=== PATIENT | female | born 1965 | race Hispanic/Latino ===

== ENCOUNTER → 2020-02-23 | Outpatient (CLI) | payer MEDICAID | END | disposition home or self-care (01) | LOC: RAH 09:45 | PROVIDERS: ATTEND Family Medicine | DX: Z12.31 Encounter for screening mammogram for malignant neoplasm of breast (principal) | CPT/HCPCS: 77067 ==

== ENCOUNTER → 2021-02-21 | Outpatient (CLI) | payer MEDICAID | END | disposition home or self-care (01) | LOC: RAH 15:01 | PROVIDERS: ATTEND Family Medicine | DX: Z12.31 Encounter for screening mammogram for malignant neoplasm of breast (principal) | CPT/HCPCS: 77067 ==

== ENCOUNTER → 2021-03-14 | Outpatient (CLI) | payer MEDICAID | END | disposition home or self-care (01) | LOC: RAH 10:25 | PROVIDERS: ATTEND Family Medicine | DX: R92.8 Other abnormal and inconclusive findings on diagnostic imaging of breast (principal); Z92.89 Personal history of other medical treatment | CPT/HCPCS: 76641 ==

== ENCOUNTER → 2021-05-10 | Outpatient (CLI) | payer MEDICAID ==
[2021-05-10 09:43] LABS: PROTHROMBIN TIME 10.9 SEC (9.6-11.6)
[2021-05-10 09:44] LABS: PARTIAL THROMBOPLASTIN TIME 26.4 SEC (26.3-35.5)
== END | disposition home or self-care (01) ==
LOC: RAH 08:55
PROVIDERS: ATTEND Student in an Organized Health Care Education/Training Program
DX: N63.32 Unspecified lump in axillary tail of the left breast (principal); R59.9 Enlarged lymph nodes, unspecified; I10 Essential (primary) hypertension; E78.5 Hyperlipidemia, unspecified; E11.43 Type 2 diabetes mellitus with diabetic autonomic (poly)neuropathy; K31.84 Gastroparesis; Z98.891 History of uterine scar from previous surgery; Z90.710 Acquired absence of both cervix and uterus; Z79.01 Long term (current) use of anticoagulants; Z79.899 Other long term (current) drug therapy
CPT/HCPCS: 10005; 36415; 85610; 85730; 87070; 87076; A4215

== ENCOUNTER 2021-06-07 10:53 | Day surgery (SDC) | payer MEDICAID ==
[2021-06-01 10:57] LABS: BASOPHILS % (AUTO) 0.5 % (0.0-5.0); EOSINOPHILS % (AUTO) 0.3 % (0.0-8.0); HEMATOCRIT 40.5 % (36-48); LYMPHOCYTES % (AUTO) 24.1 % (21.0-51.0); MEAN CORPUSCULAR HEMOGLOBIN 28.8 pg (27.0-33.0); MEAN CORPUSCULAR HGB CONC 33.1 g/dL (32.0-36.0); MEAN CORPUSCULAR VOLUME 86.9 fL (79-99); MONOCYTES % (AUTO) 6.3 % (3.0-13.0); NEUTROPHILS % (AUTO) 68.2 % (40.0-77.0); PLATELET COUNT (AUTO) 275 K/uL (130-400); RED BLOOD CELL COUNT(AUTO) 4.66 MIL/uL (4.00-5.50); WHITE BLOOD COUNT (AUTO) 9.6 K/uL (4.8-10.8)
[2021-06-01 11:20] LABS: BILIRUBIN,TOTAL 0.7 mg/dL (0.2-1.0); CREATININE 0.7 mg/dL (0.5-1.5); POTASSIUM 4.5 mmol/L (3.5-5.1); TOTAL PROTEIN, SERUM 7.6 g/dL (6.0-8.3)
[2021-06-06 13:55] VITALS: BP 144/61
[2021-06-07] VITALS (15 sets, daily range): BP systolic 109–144; BP diastolic 54–72
[~2021-06-07] VITALS: Ht 160 cm; Wt 76.6 kg
[~2021-06-07 10:53] MED LIST: AEC81 PO; CEFAZOLIN SODIUM 1 GM VIAL IVP SCH; METF-444 PO
[2021-06-07] MEDS ORDERED: AMLO-257 PO (12:04)
[2021-06-07] MEDS ORDERED: MELO-106 PO (12:04)
[2021-06-07] MEDS ORDERED: EMPA25TA PO (12:04)
[2021-06-07] MEDS ORDERED: PIOG30TA70 PO (12:04)
[2021-06-07] MEDS ORDERED: TRAZ-185 PO (12:04)
[2021-06-07] MEDS ORDERED: GABA300C PO (12:04)
[2021-06-07] MEDS ORDERED: ATOR40TA71 PO (12:04)
[2021-06-07] MEDS ORDERED: BUPIVACAINE/PF 0.25% 30ML VIAL IJ ONE (12:38)
[2021-06-07] MEDS: 0.9%NACL 1000ML 1,000 ML IV ONE ×2 (12:40→13:01)
[2021-06-07] MEDS ORDERED: KETOROLAC 30MG VIAL (30MG/ML) ONE (13:19)
== END 2021-06-07 14:35 | disposition home or self-care (01) ==
LOC: DAH 10:53
PROVIDERS: ATTEND Student in an Organized Health Care Education/Training Program
DX: L72.0 Epidermal cyst (principal); Z20.822 Contact with and (suspected) exposure to COVID-19; I10 Essential (primary) hypertension; K21.9 Gastro-esophageal reflux disease without esophagitis; E11.43 Type 2 diabetes mellitus with diabetic autonomic (poly)neuropathy; K31.84 Gastroparesis; E78.5 Hyperlipidemia, unspecified; Z79.899 Other long term (current) drug therapy; Z79.82 Long term (current) use of aspirin; Z98.891 History of uterine scar from previous surgery; Z90.710 Acquired absence of both cervix and uterus; Z79.84 Long term (current) use of oral hypoglycemic drugs; Z88.6 Allergy status to analgesic agent
CPT/HCPCS: 11404; 36415; 80053; 82948 ×2; 85025; 87635; A4215; A4221; A4222; A4223; A4600; A4663; A4930 ×2; A6260; C9803; G0168; J0690; J1885; J7030 ×2; S0020; J3490

== ENCOUNTER → 2022-12-27 | Outpatient (CLI) | payer OTHER, MEDICARE ==
[~2022-12-27] MED LIST changes: +AMLO-257 PO; +ATOR40TA71 PO; -CEFAZOLIN SODIUM 1 GM VIAL IVP SCH; +EMPA25TA PO; +GABA300C PO; +MELO-106 PO; +PIOG30TA70 PO; +TRAZ-185 PO
== END | disposition home or self-care (01) ==
LOC: RAH 11:39
PROVIDERS: ATTEND Family Medicine
DX: Z12.31 Encounter for screening mammogram for malignant neoplasm of breast (principal)
CPT/HCPCS: 77067

== ENCOUNTER → 2023-10-09 | Outpatient (CLI) | payer OTHER, MEDICARE ==
[2023-10-09 16:31] LABS: CHOLESTEROL 115 mg/dL (<200); HDL CHOLESTEROL 51 mg/dL (35-85); LDL DIRECT 56 mg/dL (0-99); TRIGLYCERIDES 130 mg/dL (30-200)
== END | disposition home or self-care (01) ==
LOC: LAB 13:20
PROVIDERS: ATTEND Internal Medicine Cardiovascular Disease
DX: E78.5 Hyperlipidemia, unspecified (principal)
CPT/HCPCS: 36415; 80061

== ENCOUNTER → 2024-08-18 | Outpatient (CLI) | payer OTHER, MEDICARE ==
--- NOTE | 2024-08-18 16:08 | HMCIMG ---
DEXA BONE DENSITY SURVEY REASON: AGE-RELATED OSTEOPOROSIS W/O CURRENT PATHOLOGICAL FX COMPARISON: None TECHNIQUE: DEXA bone densitometry was performed in the lumbar spine and left hip. FINDINGS: Mean bone mass density in the spine is 0.752 g centimeters square, T score -2.7, consistent with osteoporosis. Femoral neck T score is -2.0, total proximal femur T score -1.8 corresponding with osteopenia. IMPRESSION: 1. Osteoporosis consistent with a high fracture risk.
--- NOTE | 2024-08-19 09:00 | HMCIMG ---
SCREENING MAMMOGRAM REASON: Annual Exam COMPARISON: 12/27/2022 TECHNIQUE: CC and MLO views of the bilateral breasts were performed.CAD was performed as well. FINDINGS: Parenchymal density: There are scattered areas of fibroglandular density. There are no focal mass lesions. There are no pathologic appearing calcifications. There is no evidence of architectural distortion or skin thickening. IMPRESSION: Normal screening mammogram The patient was entered into a reminder system with a target due date for their next mammogram. BI-RADS CATEGORY 1: NEGATIVE Recommend monthly self breast exam as well as annual clinical examination. A negative x-ray should not delay biopsy if a dominant or clinically suspicious mass is present, since 8-10% of cancers are not identified by mammography. Dense breasts particularly, may obscure an underlying neoplasm. Some of these may be detected clinically and therefore, clinical examination is an essential part of breast evaluation.
== END | disposition home or self-care (01) ==
LOC: RAH 12:56
PROVIDERS: ATTEND Nurse Practitioner
DX: Z12.31 Encounter for screening mammogram for malignant neoplasm of breast (principal); R92.323 Mammographic fibroglandular density, bilateral breasts; M81.0 Age-related osteoporosis without current pathological fracture
CPT/HCPCS: 77067; 77080

== ENCOUNTER → 2024-08-28 | Outpatient (CLI) | payer OTHER, MEDICARE ==
--- NOTE | 2024-08-28 14:12 | HMCIMG ---
US VENOUS DOPPLER BILATERAL HISTORY: Pain COMPARISON: None TECHNIQUE: Bilateral lower extremity venous Doppler ultrasound study was performed. FINDINGS: The common femoral, femoral, popliteal, and posterior tibial veins are visualized. Normal flow with augmentation and compressibilities are demonstrated. The greater saphenous veins are also seen and grossly patent. IMPRESSION: 1. No evidence of deep venous thrombosis is seen.
--- NOTE | 2024-08-28 14:13 | HMCIMG ---
US ARTERIAL BILAT LOW EXT DUPL HISTORY: Respiratory vascular disease COMPARISON: None TECHNIQUE: Bilateral lower extremity arterial Doppler ultrasound study was performed. FINDINGS: Normal triphasic and biphasic arterial waveforms are noted in the common femoral, deep femoral, superficial femoral, popliteal, posterior tibial and dorsalis pedal arteries. On the right, the peak systolic velocity of the common femoral artery is 183 cm/s, the proximal femoral artery is 132 cm/s, the mid femoral artery is 102 cm/s, the distal femoral artery is 127 cm/s, the proximal popliteal artery is 84 cm/s, the distal popliteal artery is 86 cm/s, the anterior tibial artery is 89 cm/s, the posterior tibial artery artery is 93 cm/s,and the dorsalis pedal artery is 203 cm/s. On the left, the peak systolic velocity of the common femoral artery is 169 cm/s, the proximal femoral artery is 160 cm/s, the mid femoral artery is 139 cm/s, the distal femoral artery is 175 cm/s, the proximal popliteal artery is 73 cm/s, the distal popliteal artery is 101 cm/s, the anterior tibial artery is 106 cm/s, the posterior tibial artery artery is 81 cm/s,and the dorsalis pedal artery is 84 cm/s. IMPRESSION: 1. Atherosclerotic disease. 2. Otherwise normal triphasic and biphasic arterial waveforms noted of the lower extremity artery system.
== END | disposition home or self-care (01) ==
LOC: RAH 12:37
PROVIDERS: ATTEND Internal Medicine
DX: I73.9 Peripheral vascular disease, unspecified (principal); I87.2 Venous insufficiency (chronic) (peripheral)
CPT/HCPCS: 93925; 93970

== ENCOUNTER → 2025-01-08 | Outpatient (CLI) | payer OTHER, MEDICARE ==
[2025-01-08] MEDS: REGADENOSON 0.4 MG/5 ML PF SYG IVP ONE (10:57)
== END | disposition home or self-care (01) ==
LOC: SHCH 08:27
PROVIDERS: ATTEND Internal Medicine Cardiovascular Disease
DX: I25.10 Atherosclerotic heart disease of native coronary artery without angina pectoris (principal); R05.9 Cough, unspecified
CPT/HCPCS: 78452; 93017; J2785; A9500 ×2